=== PATIENT | female | born 1975 | race Caucasian/White ===

== ENCOUNTER → 2018-11-29 | Day surgery (SDC) | payer BC, OTHER ==
[~2018-11-29] MED LIST: ACETAMINOPHEN 1000 MG/100 ML IV ONE; BUPIVACAINE HCL 0.5% INJ 30 ML VIAL INJ ONE; CEFAZOLIN SOD 1 GM/NS 50ML 50 ML IV ONE; DEXAMETHASONE SOD PHOS INJ 4 MG/ML VIAL ONE; FENTANYL CITRATE/PF 100MCG/2 ML INJ ONE; LIDOCAINE HCL 2% LOCAL INJ 5 ML SDV VIAL INJ ONE; MELATONIN3 M1 PO; MIDAZOLAM HCL 2 MG/2 ML VIAL ONE; ONDANSETRON HCL INJ 2MG/ML 2ML 2 MG/ML VIAL ONE; PROPOFOL IV EMULSION 10 MG/ML 20 ML VIAL ONE; ROCURONIUM BROMIDE 10 MG/ML 5ML VIAL ONE; SEVOFLURANE INHAL SOLN 250 ML PEN BTL ONE
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
[2018-11-29 08:30] VITALS: BP 109/71
--- NOTE | 2018-11-29 11:50 | Operative Report ---
DATE OF PROCEDURE: 11/29/2018 SURGEON: Romario Stewart DPM PREOPERATIVE DIAGNOSES: 1. Right hallux valgus. 2. Second interspace neuroma. 3. Third interspace neuroma. POSTOPERATIVE DIAGNOSES: 1. Right hallux valgus. 2. Second interspace neuroma. 3. Third interspace neuroma. REHANGER: Romario Stewart DPM ANESTHESIA: General with a postoperative block consisting of 20 mL of 0.5% Marcaine mixed with 1 mL of dexamethasone phosphate. HEMOSTASIS: Pneumatic thigh tourniquet set at 350 mmHg for a total time of approximately 45 minutes. MATERIALS: Two 2.0 mm x 14 mm cortical bone screws, 2-0 Vicryl, 3-0 Vicryl, 4-0 Prolene. ESTIMATED BLOOD LOSS: Less than 10 mL. PATHOLOGY: None. PROCEDURE NOTE: The patient was seen in the preoperative waiting room, where the correct procedure and site was identified. The patient was brought to the operating room and placed on the operating table in the supine position. General anesthesia was initiated. At this time, a well-padded pneumatic tourniquet was placed about the patient's right foot. The right foot, ankle, and leg were then scrubbed, prepped, and draped in the usual aseptic manner. The right foot, ankle, and leg were exsanguinated with an Esmarch bandage and the pneumatic thigh tourniquet was inflated at 350 mmHg for a total time of approximately 30 minutes. Attention was directed to the dorsal medial aspect of the patient's right foot, where a 5 cm curvilinear incision was made directly over the 1st metatarsophalangeal joint. The incision was carried through subcutaneous tissue them from deep or underlying structures. All vital neurovascular structures were identified, retracted medial and lateral and all bleeders were cauterized or ligated as deemed necessary. The incision was then carried to the level of the 1st interspace. With the same incision, a full lateral release was performed consisting of the deep transverse metatarsal ligament, lateral collateral ligament as well as the fibular sesamoidal ligament. The hallux was then put through range of motion and found to be functioning and more proper anatomic alignment. Next, utilizing a sagittal saw, the medial eminence was resected and passed off to the back table. Next, utilizing a 0.045 K-wire as a guidewire, a Chevron osteotomy was performed with the dorsal wing longer to allow for proper fixation. The capital fragment was transposed laterally approximately 2-3 mm and impacted onto the shaft of the 1st metatarsal. Utilizing techniques of AO fixation, two 2.0 mm cortical bone screws about 14 mm were placed, fixation site was stable, and this was confirmed via intraoperative fluoroscopy. The wound was then flushed with copious amounts of sterile saline. Capsule and deep tissue were reapproximated 2-0 Vicryl, subcutaneous tissue with 3-0 Vicryl, and the skin was closed using a running interlocking stitch of 4-0 Prolene. Attention was then directed to the 3rd interspace, where a 4 cm linear incision was made. The incision was carried through the subcutaneous tissue them from deep or underlying structures, all vital neurovascular structures were identified and retracted medial and lateral and all bleeders were cauterized or ligated as deemed necessary. Next, utilizing blunt dissection, the deep transverse metatarsal ligament was isolated. Utilizing a Metzenbaum scissors, the deep transverse metatarsal ligament was incised to allow for good visualization of the 3rd interspace neuroma. The proper digital branches as well as the common digital branch was noted to be tortuous, inflamed and irritated. Utilizing a hemostat, the neuroma was grasped and dissected bluntly with hemostat, the proper digital branches were cut at the level of the metatarsophalangeal joint, the neuroma was pulled distally, cut proximally and allowed to retract into the foot and passed off to the back table. The wound was flushed with copious amounts of sterile saline. Deep tissues were reapproximated 3-0 Vicryl and the skin was closed using a running interlocking stitch with 4-0 Prolene. Attention was directed to the 2nd interspace, where the same exact procedure was performed as noted above with techniques and modifications, no additions or subtractions and the same excellent result was achieved. All incision sites were dressed with Adaptic, 4x4s, Kerlix, Nain wrap, and a postop shoe. The patient tolerated procedure and anesthesia well. The patient was transferred to the postoperative recovery unit with vital signs stable and vascular status intact. The patient was monitored there for a short period of time before being sent home with the following written and oral instructions. 1. Keep the dressing clean, dry, and intact. 2. The patient is to remain partial weightbearing in a postop shoe to avoid excessive ambulation until being seen in the office. 3. The patient is given the office number to contact us if any problems arise. MARINO Rooney/ALYSSA /[id number]
== END | disposition home or self-care (01) ==
LOC: OR 05:10
PROVIDERS: ATTEND Podiatrist Foot & Ankle Surgery
DX: G57.61 Lesion of plantar nerve, right lower limb (principal); M20.11 Hallux valgus (acquired), right foot; Z85.820 Personal history of malignant melanoma of skin
CPT/HCPCS: 28080 ×2; 28296; C1713 ×2; J0131; J0690; J1100; J2001; J2250; J2405; J2704